=== PATIENT | female | born 1990 | race African-American/Black ===

== ENCOUNTER 2021-03-29 14:47 | Emergency (ER) | payer MEDICAID ==
[~2021-03-29] VITALS: Ht 154.9 cm; Wt 52.0 kg
[2021-03-29] MEDS ORDERED: MORPHINE SULFATE 4 MG/ML CPJ (NOT FOR IM USE) IV STA (16:28)
[2021-03-29] MEDS ORDERED: DIAZEPAM 5 MG TABLET PO ONE (16:30)
[2021-03-29] MEDS ORDERED: SODIUM CHLORIDE 0.9% 1,000 ML IV ONE (16:30)
[2021-03-29] MEDS ORDERED: MORPHINE SULFATE 2 MG/ML CPJ (NOT FOR IM USE) IV NR (17:00)
[2021-03-29 17:06] LABS: CLARITY URINE CLOUDY (CLEAR); COLOR URINE YELLOW (YELLOW); KETONES URINE NEGATIVE (NEGATIVE); LEUKOCYTE ESTERASE URINE 3+ (NEGATIVE); NITRITE URINE NEGATIVE (NEGATIVE); OCCULT BLOOD URINE NEGATIVE (NEGATIVE); PROTEIN URINE NEGATIVE (NEGATIVE); SPECIFIC GRAVITY URINE 1.018 (1.005-1.030); UROBILINOGEN URINE 0.2 E.U./dL (0.2-1.0)
[2021-03-29 17:16] LABS: BASOPHILS % 0.9 % (0.0-2.0); EOSINOPHILS % 2.2 % (0.0-5.0); HEMATOCRIT. 35.1 % (36.0-48.0); LYMPHOCYTES % 27.7 % (20.0-50.0); MEAN CORPUSCULAR VOLUME 90.6 fL (81.0-99.0); MEAN PLATELET VOLUME 9.9 fl (7.4-10.4); MONOCYTES % 9.7 % (2.0-8.0); NEUTROPHILS % 59.5 % (40.0-76.0); PLATELET 262 x1000/uL (130-400); RED BLOOD CELL COUNT 3.87 mill/uL (4.2-5.4); RED CELL DISTRIBUTION WIDTH 12.8 % (11.6-14.6)
[2021-03-29 17:17] LABS: *AMPHETAMINES SCREEN URINE NEGATIVE (NEGATIVE); *BARBITURATES SCREEN URINE NEGATIVE (NEGATIVE); *BENZODIAZEPINES SCREEN URINE NEGATIVE (NEGATIVE); *COCAINE SCREEN URINE NEGATIVE (NEGATIVE)
[2021-03-29 17:18] LABS: METHADONE URINE SCREEN NEGATIVE (NEGATIVE); OPIATES URINE SCREEN NEGATIVE (NEGATIVE); PHENCYCLIDINE URINE SCREEN NEGATIVE (NEGATIVE)
[2021-03-29 17:19] LABS: CANNABINOID URINE SCREEN PRESUMTIVE POSITIVE (NEGATIVE)
[2021-03-29 17:22] LABS: CHLORIDE 111 mEq/L (98-107)
[2021-03-29 17:25] LABS: PROTHROMBIN TIME 10.9 sec (9.6-11.0)
[2021-03-29] MEDS ORDERED: ONDA4TAB5 MT (19:49)
[2021-03-29] MEDS ORDERED: METH-773 MT (19:49)
[2021-03-29] MEDS ORDERED: NITR-87 MT (19:49)
[2021-03-29 20:00] VITALS: BP 130/73
[2021-03-29] MEDS ORDERED: KETOROLAC 30MG/ML VIAL IV ONE (20:00)
== END 2021-03-29 20:15 | disposition home or self-care (01) ==
LOC: ER 14:47
DX: M54.2 Cervicalgia (principal); M54.40 Lumbago with sciatica, unspecified side; R11.10 Vomiting, unspecified; N39.0 Urinary tract infection, site not specified; V43.02XA Car driver injured in collision with other type car in nontraffic accident, initial encounter; Y93.89 Activity, other specified; Y92.410 Unspecified street and highway as the place of occurrence of the external cause
CPT/HCPCS: 36415; 71045; 72125; 74176; 80053; 80305; 81003; 81025; 83690; 85025; 85610; 93005; 96361; 96374; 96375; 99285; J1885; J2270; J7030

== ENCOUNTER 2021-03-30 03:07 | Emergency (ER) | payer MEDICAID ==
[~2021-03-30] VITALS: Ht 157.5 cm; Wt 60.1 kg
[~2021-03-30 03:07] MED LIST: METH-773 MT; NITR-87 MT; ONDA4TAB5 MT
[2021-03-30 03:25] VITALS: BP 129/92
[2021-03-30] MEDS ORDERED: KETOROLAC 30MG/ML VIAL IM ONE (04:15)
[2021-03-30] MEDS ORDERED: ACETAMINOPHEN 500MG TABLET PO ONE (04:30)
== END 2021-03-30 04:51 | disposition home or self-care (01) ==
LOC: ER 03:27
DX: R31.9 Hematuria, unspecified (principal); N39.0 Urinary tract infection, site not specified; E11.9 Type 2 diabetes mellitus without complications
CPT/HCPCS: 99283

== ENCOUNTER 2021-06-27 12:44 | Emergency (ER) | payer MEDICAID ==
[~2021-06-27] VITALS: Ht 160 cm; Wt 52.0 kg
[2021-06-27 13:56] VITALS: BP 129/74
[2021-06-27] MEDS ORDERED: HYDROCODONE/ACETAMINOPHEN 5/325MG TABLET PO ONE (14:30)
[2021-06-27] MEDS ORDERED: KETOROLAC 30MG/ML VIAL IM ONE (14:30)
[2021-06-27] MEDS ORDERED: LIDOCAINE 5% PATCH TOP SCH (16:30)
[2021-06-27] MEDS ORDERED: HYDR-4001 MT (17:38)
[2021-06-27] MEDS ORDERED: NAPR-1176 MT (17:38)
[2021-06-27] MEDS ORDERED: LIDO1ADH23 TP (17:38)
== END 2021-06-27 18:00 | disposition home or self-care (01) ==
LOC: ER 12:44
DX: M54.2 Cervicalgia (principal)
CPT/HCPCS: 81025; 96372; 99283; J1885

== ENCOUNTER 2022-05-21 06:49 | Inpatient (IN) | payer MEDICAID, OTHER ==
[~2022-05-21] VITALS: Ht 160 cm; Wt 58.1 kg
[~2022-05-21 06:49] MED LIST changes: +HYDR-4001 MT; +LIDO1ADH23 TP; +NAPR-1176 MT
[2022-05-21] MEDS ORDERED: MORPHINE SULFATE 4 MG/ML CPJ (NOT FOR IM USE) IV STA (07:09)
[2022-05-21 08:41] LABS: BASOPHILS % 0.7 % (0.0-2.0); EOSINOPHILS % 0.5 % (0.0-5.0); HEMOGLOBIN. 14.3 g/dL (12.0-16.0); LYMPHOCYTES % 21.5 % (20.0-50.0); MEAN CORPUSCULAR HEMOGLOBIN 30.3 pg (28.0-32.0); MEAN CORPUSCULAR VOLUME 91.1 fL (81.0-99.0); MEAN PLATELET VOLUME 9.3 fl (7.4-10.4); MONOCYTES % 7.5 % (2.0-8.0); NEUTROPHILS % 69.8 % (40.0-76.0); PLATELET 333 x1000/uL (130-400); RED BLOOD CELL COUNT 4.72 mill/uL (4.2-5.4); RED CELL DISTRIBUTION WIDTH 12.6 % (11.6-14.6)
[2022-05-21 08:52] LABS: PROTHROMBIN TIME 10.9 sec (9.6-11.0)
[2022-05-21 08:56] LABS: CHLORIDE 111 mEq/L (98-107)
[2022-05-21] MEDS ORDERED: MORPHINE SULFATE 4 MG/ML CPJ (NOT FOR IM USE) IV ONE (09:15)
[2022-05-21 10:52] LABS: CLARITY URINE CLEAR (CLEAR); COLOR URINE YELLOW (YELLOW); KETONES URINE 1+ (NEGATIVE); LEUKOCYTE ESTERASE URINE NEGATIVE (NEGATIVE); NITRITE URINE NEGATIVE (NEGATIVE); OCCULT BLOOD URINE NEGATIVE (NEGATIVE); PROTEIN URINE NEGATIVE (NEGATIVE); SPECIFIC GRAVITY URINE 1.014 (1.005-1.030); UROBILINOGEN URINE 0.2 E.U./dL (0.2-1.0)
[2022-05-21] MEDS ORDERED: IPRATROPIUM/ALBUTEROL 0.5-3(2.5)MG/3ML NEB HHN PRN (16:15)
[2022-05-21] MEDS ORDERED: CLONIDINE 0.1MG TABLET PO PRN (16:15)
[2022-05-21] MEDS ORDERED: ONDANSETRON HCL 4MG/2ML INJ IV PRN (16:15)
[2022-05-21] MEDS ORDERED: DIPHENHYDRAMINE 50MG/ML VIAL IV PRN (16:15)
[2022-05-21] MEDS ORDERED: NALOXONE HCL 0.4MG/ML VIAL IV PRN (18:00)
[2022-05-21] MEDS: MORPHINE SULFATE 2 MG/ML CPJ (NOT FOR IM USE) IV PRN (18:36)
[2022-05-21 22:12] VITALS: BP 117/73
[2022-05-22 00:17] VITALS: BP 116/74
[2022-05-22 04:00] VITALS: BP 110/62
[2022-05-22 08:00] VITALS: BP 130/68
[2022-05-22 13:11] LABS: BASOPHILS % 0.6 % (0.0-2.0); EOSINOPHILS % 0.9 % (0.0-5.0); HEMATOCRIT. 44.6 % (36.0-48.0); HEMOGLOBIN. 15.3 g/dL (12.0-16.0); LYMPHOCYTES % 26.9 % (20.0-50.0); MEAN CORPUSCULAR HEMOGLOBIN 30.8 pg (28.0-32.0); MEAN CORPUSCULAR VOLUME 90.1 fL (81.0-99.0); MEAN PLATELET VOLUME 9.5 fl (7.4-10.4); MONOCYTES % 7.7 % (2.0-8.0); NEUTROPHILS % 63.9 % (40.0-76.0); PLATELET 367 x1000/uL (130-400); RED BLOOD CELL COUNT 4.95 mill/uL (4.2-5.4); RED CELL DISTRIBUTION WIDTH 12.8 % (11.6-14.6)
[2022-05-22] MEDS: MORPHINE SULFATE 2 MG/ML CPJ (NOT FOR IM USE) IV PRN (13:26)
[2022-05-22 16:08] LABS: CHLORIDE 105 mEq/L (98-107)
[2022-05-22 20:00] VITALS: BP 137/77
[2022-05-22] MEDS: ACETAMINOPHEN 325MG TABLET PO PRN (21:14)
[2022-05-23] VITALS: BP 117/75
[2022-05-23 04:00] VITALS: BP 116/72
[2022-05-23] MEDS: ACETAMINOPHEN 325MG TABLET PO PRN ×2 (09:09→14:45)
[2022-05-23] MEDS ORDERED: HYDR-4001 MT (13:35)
[2022-05-23 17:07] VITALS: BP 115/66
== END 2022-05-23 18:07 | disposition home health service (06) | DRG 347 ==
LOC: ER 06:49 → 6EST 10:35 → EDBEDREQTM 10:40 → EDBEDREQ 10:40 → EDBEDREQSVC 10:40
PROVIDERS: ADMIT Internal Medicine; ATTEND Internal Medicine
DX: M50.20 Other cervical disc displacement, unspecified cervical region (principal); E11.9 Type 2 diabetes mellitus without complications; W18.2XXA Fall in (into) shower or empty bathtub, initial encounter; Y93.E1 Activity, personal bathing and showering; Z79.899 Other long term (current) drug therapy
CPT/HCPCS: 36415; 71045; 72148; 80053; 81003; 84484; 85025; 93970; 97162; 99285; J1200; J2270; J2405